=== PATIENT | male | born 1995 | race Caucasian/White ===

== ENCOUNTER 2016-08-14 13:59 | Emergency (ER) | payer SELFPAY ==
[2016-08-14] MEDS ORDERED: Tetan/Diph/Pertus SYR(Tdap)* 0.5 ML SYR(BOOSTRIX) use SYR IM ONE (15:01)
--- NOTE | 2016-08-14 15:01 | UC ---
Laceration HPI - HPI Summary HPI Summary: laceration right middle finger x 1 hr ago cut his finger at work - History Of Current Complaint Chief Complaint: UCLaceration Stated Complaint: RIGHT MIDDLE FINGER LACERATION W/C Time Seen by Provider: 08/14/16 14:38 Hx Obtained From: Patient Laceration Location: Finger - right middle finger Mechanism Of Injury: Blunt Trauma Onset/Duration: Sudden Onset, Lasting Hours - 1, Still Present Severity: Moderate Aggravating Factors: Movement Related History: Occupational Injury - Allergies/Home Medications Allergies/Adverse Reactions: Allergies Allergy/AdvReac Type Severity Reaction Status Date / Time Cephalosporins Allergy Rash Verified 08/14/16 14:53 PMH/Surg Hx/FS Hx/Imm Hx Previously Healthy: Yes - Surgical History Surgical History: Yes Surgery Procedure, Year, and Place: RIGHT NAIL AVULSION R/T [facility] - Family History Known Family History: Negative: Diabetes - Social History Alcohol Use: Occasionally Substance Use Type: None Smoking Status (MU): Never Smoked Tobacco - Immunization History Most Recent Influenza Vaccination: not this season Most Recent Tetanus Shot: UNKNOWN Review of Systems Constitutional: Negative Eyes: Negative ENT: Negative Respiratory: Negative Cardiovascular: Negative All Other Systems Reviewed And Are Negative: Yes Physical Exam Triage Information Reviewed: Yes Appearance: Well-Appearing, No Pain Distress, Well-Nourished Vital Signs: Initial Vital Signs Temp 97.9 F 08/14/16 14:44 Pulse 69 08/14/16 14:44 Resp 12 08/14/16 14:44 BP 129/64 08/14/16 14:44 Pulse Ox 98 08/14/16 14:44 Vital Signs Reviewed: Yes Eye Exam: Normal Eyes: Positive: Conjunctiva Clear ENT Exam: Normal Neck exam: Normal Respiratory: Positive: Chest non-tender, Lungs clear, Normal breath sounds Cardiovascular: Positive: RRR, No Murmur, Pulses Normal Skin: Positive: Other - laceration right middle finger distal phalangs , 1 cm in diameter Laceration Repair - Laceration Repair 1 Description: Linear Laceration Size After Repair: Length (cm) - 1, Width (mm) - 1 Modified For Repair: No Cleansing Completed Via Routine Prep: Yes Irrigation With Pressure Irrigation Device: Yes Closure Material: Skin Adhesive Laceration Course/Dx - Differential Dx - Laceration/Wound Provider Diagnoses: laceration finger Discharge - Discharge Plan Condition: Stable Disposition: HOME Patient Education Materials: Finger Laceration (ED), Skin Adhesive Care (ED) Referrals: Toi Guzman MD [Primary Care Provider] - 5 Days
[2016-08-14 15:28] VITALS: BP 125/70
== END 2016-08-14 15:25 | disposition home or self-care (01) ==
LOC: UCCORT 13:59
DX: S61.212A Laceration without foreign body of right middle finger without damage to nail, initial encounter (principal); W45.8XXA Other foreign body or object entering through skin, initial encounter; Y93.9 Activity, unspecified; Y92.89 Other specified places as the place of occurrence of the external cause; Y99.0 Civilian activity done for income or pay; Z23 Encounter for immunization; Z88.1 Allergy status to other antibiotic agents
CPT/HCPCS: 12001; 90471; 90715; 99211; G0463

== ENCOUNTER 2019-04-09 15:08 | Emergency (ER) | payer SELFPAY ==
[2019-04-09 16:01] VITALS: BP 130/69
--- NOTE | 2019-04-09 16:34 | UC ---
Back Pain HPI - HPI Summary HPI Summary: 23 year old male with No PMH, no prior back pain, injuries, presents with increased back pain after falling in bathtub on Tuesday 1 weeks ago. no numbness , tingling, no loss bowel/ bladder function, no decreased strength. + pain over spine, no muscle spasms. Pain with lifting, standing for long periods, going from sitting to standing position. - History of Current Complaint Chief Complaint: UCBackPain Stated Complaint: BACK PAIN Time Seen by Provider: 04/09/19 15:58 Hx Obtained From: Patient Onset/Duration: Sudden Onset, Lasting Weeks - 1 week Timing: Constant Severity Initially: Moderate Severity Currently: Moderate Pain Intensity: 7 Pain Scale Used: 0-10 Numeric Back Pain: Is Discrete @ - lower back Aggravating Factor(s): Movement, Lifting, Bending, Walking Alleviating Factor(s): Rest Associated Signs And Symptoms: Negative: Weakness, Numbness, Tingling, Bladder Incontinence, Bowel Incontinence, Weight Loss, Pain with Weight Bearing - Allergies/Home Medications Allergies/Adverse Reactions: Allergies Allergy/AdvReac Type Severity Reaction Status Date / Time Cephalosporins Allergy Rash Verified 04/09/19 15:52 Home Medications: Home Medications Loratadine [Claritin 10 MG CAP] 10 mg PO DAILY 04/09/19 [History Confirmed 04/09] Omeprazole 20 mg PO 04/09/19 [History] PMH/Surg Hx/FS Hx/Imm Hx Previously Healthy: Yes - Surgical History Surgical History: Yes Surgery Procedure, Year, and Place: RIGHT NAIL AVULSION R/T [facility] - Family History Known Family History: Positive: Non-Contributory Negative: Diabetes - Social History Occupation: Employed Full-time Alcohol Use: Occasionally Substance Use Type: None Smoking Status (MU): Never Smoked Tobacco - Immunization History Most Recent Influenza Vaccination: not this season Most Recent Tetanus Shot: UNKNOWN Review of Systems All Other Systems Reviewed And Are Negative: Yes Constitutional: Positive: Negative Musculoskeletal: Positive: Arthralgia, Decreased ROM, Myalgia Is Patient Immunocompromised?: No Physical Exam Triage Information Reviewed: Yes Appearance: Well-Appearing, Well-Nourished, Pain Distress - moderate Vital Signs: Initial Vital Signs Temp 98.4 F 04/09/19 15:54 Pulse 72 04/09/19 15:54 Resp 12 04/09/19 15:54 BP 130/69 04/09/19 15:54 Pulse Ox 100 04/09/19 15:54 Vital Signs Reviewed: Yes Eyes: Positive: Conjunctiva Clear Neck: Positive: Supple, Nontender, No Lymphadenopathy. Negative: Nuchal Rigidity Respiratory: Positive: Chest non-tender Musculoskeletal Exam: Normal - TTP over lumber spine directly, ~ L4, L5 region. no TTP over soft tissue, S1 joints. Decreased flexion at waist, + DF/PF = b/l, able to stand on one leg, raise onto toes, heels b/l. Musculoskeletal: Positive: Other: - TTP over lumbaer spine directly, Neurological: Positive: Alert, Muscle Tone Normal, Other: - patellar reflexes 2 + b/l Psychological Exam: Normal Back Pain Course/Dx - Course Course Of Treatment: radiograph: neg for fx. - Naproxen 500mg twice daily x 5 days to decrease swelling, decrease pain. - If no improvement within 24 hours on naproxen, may start steroids/ prednisone. STOP naproxen at that time. - GO to ER with bowel changes, incontinence, numbness/ tingling, lower leg swelling, decreased strength. - FOllow up with primary within 1 week if no improvement - Differential Dx/Diagnosis Differential Diagnosis/HQI/PQRI: Strain, Sprain Provider Diagnosis: Back pain Discharge ED - Sign-Out/Discharge Documenting (check all that apply): Patient Departure All imaging exams completed and their final reports reviewed: Yes - Discharge Plan Condition: Good Disposition: HOME Prescriptions: Naproxen [Naproxen 500 mg tab] 500 mg PO BID PRN #20 tablet. PRN Reason: Pain - Moderate predniSONE TAB* [Deltasone 10 MG TAB*] 3 tab PO DAILY #9 tab Patient Education Materials: Acute Low Back Pain (ED) Referrals: Toi Guzman MD [Primary Care Provider] - Additional Instructions: - Naproxen 500mg twice daily x 5 days to decrease swelling, decrease pain. - If no improvement within 24 hours on naproxen, may start steroids/ prednisone. STOP naproxen at that time. - GO to ER with bowel changes, incontinence, numbness/ tingling, lower leg swelling, decreased strength. - FOllow up with primary within 1 week if no improvement - Billing Disposition and Condition Condition: GOOD Disposition: Home
== END 2019-04-09 17:17 | disposition home or self-care (01) ==
LOC: UCCORT 15:08
DX: M54.5 Low back pain (principal); Z88.1 Allergy status to other antibiotic agents
CPT/HCPCS: 72110; 99212; G0463